=== PATIENT | female | born 1970 | race Hispanic/Latino ===

== ENCOUNTER 2018-11-07 21:40 | Emergency (ER) | payer MEDICARE ==
[2018-11-07] MEDS ORDERED: NACL 0.9% 1000 ML 1,000 ML ONE (22:00)
[2018-11-07] MEDS ORDERED: TORADOL IV ONE (22:02)
[2018-11-07] MEDS ORDERED: TORADOL ONE (22:04)
[2018-11-07 22:08] LABS: Basophils % (Auto) 0.7 % (0.0-1.8); Eosinophils # (Auto) 0.1 K/mm3 (0.0-0.4); Eosinophils % (Auto) 2.4 % (0.0-4.3); Hematocrit 33.6 % (30.3-42.9); Hemoglobin 11.4 gm/dl (10.1-14.3); Lymphocytes # (Auto) 2.6 K/mm3 (1.2-5.4); Lymphocytes % (Auto) 43.9 % (13.4-35.0); Mean Corpuscular HGB Conc 34 % (30-34); Mean Corpuscular Volume 95 fl (79-97); Monocytes # (Auto) 0.6 K/mm3 (0.0-0.8); Monocytes % (Auto) 9.5 % (0.0-7.3); Platelet Count 191 K/mm3 (140-440); Red Blood Count 3.54 M/mm3 (3.65-5.03); Red Cell Distribution Width 16.5 % (13.2-15.2)
--- NOTE | 2018-11-07 22:13 | Emergency Department Report ---
ED Chest Pain HPI - General Chief Complaint: Chest Pain Stated Complaint: SOB/DIZZINESS/CP Time Seen by Provider: 11/07/18 21:56 Source: patient, EMS Mode of arrival: Stretcher Limitations: No Limitations - History of Present Illness Initial Comments: Mrs. Mccoy is a 48 yo female with hx of cervical cancer s/p cryotherapy 20 years ago, chronic pain, drug overdose who presents with 9 days of heavy vaginal bleeding, chest pain, abdominal pain and syncope. For the past 9 days changing pads every 30 minutes for heavy vaginal bleeding. Today developed dull chest pain radiating to shoulder which has been presents for the entire day at rest. Has lower abdominal pain radiating to pelvis.3 Home medications include Xanax and Synthroid. MD Complaint: chest pain -: Gradual, days(s) (1) Onset: during rest Severity scale (0 -10): 6 Quality: heaviness, dull Consistency: constant Improves With: nothing Worsens With: nothing - Related Data Home Medications Medication Instructions Recorded Confirmed Last Taken Hydromorphone HCl [Dilaudid] 4 mg PO BID 07/20/14 07/26/14 07/20/14 Oxycodone HCl [Roxicodone] 30 mg PO BID 07/20/14 07/26/14 07/20/14 Previous Rx's Medication Instructions Recorded Last Taken Type ALPRAZolam [Xanax TAB] 0.5 mg PO Q8H PRN #15 tablet 06/20/13 07/20/14 Rx Levothyroxine [Synthroid] 100 mcg PO DAILY@0600 #30 tablet 06/20/13 Unknown Rx ALBUTEROL Inhaler (OR & NICU) 2 puff IH QID PRN #1 inhalation 06/02/15 Unknown Rx [ProAir HFA Inhaler] Azithromycin [Zithromax Z-MONIQUE] 250 mg PO DAILY #6 tab 06/02/15 Unknown Rx Benzonatate [Tessalon Perles] 100 mg PO Q8HR #20 capsule 06/02/15 Unknown Rx ALPRAZolam [Xanax TAB] 1 mg PO BID PRN #10 tab 11/08/18 Unknown Rx Ibuprofen [Motrin 800 MG tab] 800 mg PO Q8HR PRN #10 tablet 11/08/18 Unknown Rx Levothyroxine [Synthroid] 175 mcg PO QAM 30 Days #30 tablet 11/08/18 Unknown Rx Allergies Allergy/AdvReac Type Severity Reaction Status Date / Time morphine Allergy Shortness Verified 07/20/14 23:00 of Breath Penicillins Allergy Shortness Verified 07/20/14 23:00 of Breath Heart Score - HEART Score History: Slightly suspicious EKG: Normal Age: 45-65 Risk factors: 1-2 risk factors Troponin: < normal limit HEART Score: 2 ED Review of Systems ROS: Stated complaint: SOB/DIZZINESS/CP Other details as noted in HPI Comment: All other systems reviewed and negative Constitutional: malaise. denies: fever Cardiovascular: chest pain Gastrointestinal: abdominal pain Genitourinary: abnormal menses ED Past Medical Hx - Past Medical History Previous Medical History?: Yes Hx Hypertension: No Hx Congestive Heart Failure: No Hx Diabetes: No Hx of Cancer: Yes (cervical) Hx Psychiatric Treatment: Yes (anxiety) Hx Asthma: No Hx COPD: No Additional medical history: Chronic pain, overdose, pnemonia, hypothyroidism - Surgical History Additional Surgical History: x2 - Family History Family history: CAD/IA, vascular disease - Social History Smoking Status: Current Every Day Smoker Substance Use Type: None - Medications Home Medications: Home Medications Medication Instructions Recorded Confirmed Last Taken Type ALPRAZolam [Xanax TAB] 0.5 mg PO Q8H PRN #15 tablet 06/20/13 07/26/14 07/20/14 Rx Levothyroxine [Synthroid] 100 mcg PO DAILY@0600 #30 tablet 06/20/13 07/26/14 Unknown Rx Hydromorphone HCl [Dilaudid] 4 mg PO BID 07/20/14 07/26/14 07/20/14 History Oxycodone HCl [Roxicodone] 30 mg PO BID 07/20/14 07/26/14 07/20/14 History ALBUTEROL Inhaler (OR & NICU) 2 puff IH QID PRN #1 inhalation 06/02/15 Unknown Rx [ProAir HFA Inhaler] Azithromycin [Zithromax Z-MONIQUE] 250 mg PO DAILY #6 tab 06/02/15 Unknown Rx Benzonatate [Tessalon Perles] 100 mg PO Q8HR #20 capsule 06/02/15 Unknown Rx ALPRAZolam [Xanax TAB] 1 mg PO BID PRN #10 tab 11/08/18 Unknown Rx Ibuprofen [Motrin 800 MG tab] 800 mg PO Q8HR PRN #10 tablet 11/08/18 Unknown Rx Levothyroxine [Synthroid] 175 mcg PO QAM 30 Days #30 tablet 11/08/18 Unknown Rx ED Physical Exam - General Limitations: No Limitations General appearance: alert, in no apparent distress, other (anxious) - Head Head exam: Present: atraumatic, normocephalic - Eye Eye exam: Present: normal appearance - ENT ENT exam: Present: mucous membranes moist - Neck Neck exam: Present: normal inspection, full ROM - Respiratory Respiratory exam: Present: normal lung sounds bilaterally. Absent: respiratory distress, wheezes, rales, rhonchi - Cardiovascular Cardiovascular Exam: Present: regular rate, normal rhythm, normal heart sounds. Absent: systolic murmur, diastolic murmur, rubs, gallop - GI/Abdominal GI/Abdominal exam: Present: soft, normal bowel sounds. Absent: distended, tenderness, guarding, rebound - Extremities Exam Extremities exam: Present: normal inspection - Neurological Exam Neurological exam: Present: alert, oriented X3 - Psychiatric Psychiatric exam: Present: normal affect, normal mood - Skin Skin exam: Present: warm, dry, intact, normal color. Absent: rash ED Course Vital Signs 11/07/18 11/07/18 11/07/18 21:43 21:50 22:00 Temperature 98.2 F Pulse Rate 64 59 L 63 Respiratory 16 14 Rate Blood Pressure 98/64 90/58 Blood Pressure [Left] O2 Sat by Pulse 98 98 100 Oximetry 11/07/18 11/07/18 11/07/18 22:06 22:08 22:16 Temperature 98 F Pulse Rate 54 L Respiratory 16 16 13 Rate Blood Pressure 90/58 Blood Pressure 90/54 [Left] O2 Sat by Pulse 97 97 99 Oximetry 11/07/18 11/07/18 11/07/18 22:30 22:43 22:54 Temperature Pulse Rate 57 L 52 L Respiratory 19 16 Rate Blood Pressure 100/54 98/15 Blood Pressure 100/54 [Left] O2 Sat by Pulse 98 98 100 Oximetry 11/07/18 11/07/18 11/07/18 23:00 23:16 23:20 Temperature 97.4 F L Pulse Rate 56 L 67 60 Respiratory 14 19 12 Rate Blood Pressure 101/41 101/61 Blood Pressure 94/53 [Left] O2 Sat by Pulse 99 98 100 Oximetry 11/07/18 11/07/18 11/08/18 23:30 23:46 00:15 Temperature Pulse Rate 63 57 L 65 Respiratory 15 17 12 Rate Blood Pressure 94/53 96/46 112/49 Blood Pressure 112/49 [Left] O2 Sat by Pulse 99 100 98 Oximetry 11/08/18 11/08/18 11/08/18 00:30 00:46 02:03 Temperature Pulse Rate 60 Respiratory 14 21 Rate Blood Pressure 97/51 119/62 116/57 Blood Pressure [Left] O2 Sat by Pulse 97 99 Oximetry 11/08/18 11/08/18 11/08/18 02:15 02:30 02:45 Temperature Pulse Rate 64 62 62 Respiratory 16 12 14 Rate Blood Pressure 95/59 97/50 92/53 Blood Pressure [Left] O2 Sat by Pulse 99 97 96 Oximetry 11/08/18 11/08/18 03:12 03:15 Temperature Pulse Rate 61 57 L Respiratory 21 15 Rate Blood Pressure 95/59 94/59 Blood Pressure [Left] O2 Sat by Pulse 98 97 Oximetry ED Medical Decision Making - Lab Data Result diagrams: 11/07/18 21:57 11/07/18 21:57 - EKG Data -: EKG Interpreted by [place] EKG shows normal: sinus rhythm, axis, intervals, QRS complexes, ST-T waves Rate: normal - EKG Data Interpretation: no acute changes, normal EKG 11/07/18 22:13 EKG obtained at 2152 NSR nl rate nl axis nl intervals no ST-T signs of ischemia no ST elevation rate 60 - Radiology Data Radiology results: report reviewed ct a/p, cxr, v/q scan without acute process - Medical Decision Making 1. chest pain, atypical for ACS. No indication of PE or dissection. Normal EKG. Normal troponin. 2. abdominal pain, no evidence of intra-abdominal inflammatory or infectious process, 3. Dysfunctional uterine bleeding: Differential diagnosis includes perimenopausal bleeding, malignancy/neoplasm, uterine fibroid, no evidence of severe significant anemia normal hemoglobin and hematocrit 4. Syncope with mild hypotension initially, no orthostasis after IVF hydration, Ambulatory, standing BP 101/55 5. medication refill, given synthroid prescription Critical Care Time: Yes Critical care time in (mins) excluding proc time.: 40 Critical care attestation.: If time is entered above; I have spent that time in minutes in the direct care of this critically ill patient, excluding procedure time. 40 minutes of critical care time excluding procedures were used in the care of the patient. Patient required multiple assessments and interventions. I reviewed the electronic medical record. ED Disposition Clinical Impression: DUB (dysfunctional uterine bleeding), Chest pain, Abdominal pain, Hypothyroidism, Medication refill Disposition: TO HOME OR SELFCARE Is pt being admited?: No Does the pt Need Aspirin: No Condition: Stable Instructions: Chest Pain (ED), Acute Abdominal Pain (ED), Dysfunctional Uterine Bleeding (ED) Prescriptions: Ibuprofen [Motrin 800 MG tab] 800 mg PO Q8HR PRN #10 tablet PRN Reason: Pain , Severe (7-10) Levothyroxine [Synthroid] 175 mcg PO QAM 30 Days #30 tablet ALPRAZolam [Xanax TAB] 1 mg PO BID PRN #10 tab PRN Reason: Anxiety
[2018-11-07 22:25] LABS: BUN/Creatinine Ratio 16; Blood Urea Nitrogen 14 mg/dL (7-17); Calcium 8.2 mg/dL (8.4-10.2); Hemolysis Index 4
[2018-11-07] MEDS ORDERED: NACL 0.9% 1000 ML 1,000 ML IV ONE (22:54)
--- NOTE | 2018-11-07 23:14 | XRay Report ---
EXAM: XR CHEST 1V AP HISTORY: Chest Pain TECHNIQUE: AP CXR dated 11/07/2018 at 2200 hours. COMPARISON: None available. FINDINGS: The heart size and mediastinum are within normal limits. The lung bartlett and costophrenic angles are clear. There is no acute parenchymal infiltrate, pleural effusion, or pneumothorax seen. The visua lized bony structures are within normal limits. IMPRESSION: 1. No evidence for acute cardiopulmonary disease seen. This document is electronically signed by Anjali Real MD., Nov 07 2018 11:12:14 PM ET
--- NOTE | 2018-11-07 23:22 | Cat Scan Report ---
PROCEDURE: CT ABDOMEN PELVIS WO CON TECHNIQUE: Computerized axial tomography of the abdomen and pelvis was performed without intravenous contrast. This study is performed without intravascular contrast material and its sensitivity for ab dominal and pelvic pathology, including neoplasms, inflammation, abscess, free fluid, thrombosis, art erial dissection and infarction, is reduced compared with a contrast enhanced study. CT DOSE LENGTH PRODUCT: 1710.4 mGycm HISTORY: abdominal pain COMPARISONS: None . FINDINGS: Visualized lower thorax: No significant abnormality. Liver: Normal size and attenuation. Spleen: Normal size and attenuation. Gallbladder and biliary system: Normal. Pancreas: Normal. Adrenals: Normal. Kidneys: No kidney stones. There is no hydronephrosis.. GI tract: There is no bowel obstruction, colitis or enteritis. The appendix is normal. . Lymph nodes and mesentery: Normal. Vasculature: Normal.. Bladder: Normal. Reproductive organs: Uterus and ovaries are unremarkable.. Peritoneum: There is no ascites or free air, abscess or adenopathy.. Musculoskeletal structures: No significant abnormality. Other: None. IMPRESSION: Normal examination of the abdomen and pelvis . This document is electronically signed by Jason Carpio MD., Nov 07 2018 11:19:52 PM ET
[2018-11-08 00:32] LABS: Amphetamine Screen,Urine PRESUMPTIVE NEGATIVE; Cannabinoid Screen,Urine PRESUMPTIVE NEGATIVE; Cocaine Screen,Urine PRESUMPTIVE NEGATIVE; Methadone Screen,Urine PRESUMPTIVE NEGATIVE; Opiate Screen,Urine PRESUMPTIVE NEGATIVE
[2018-11-08 01:09] LABS: Benzodiazepines Screen,Urine PRESUMPTIVE POSITIVE
[2018-11-08] MEDS ORDERED: BENADRYL IV ONE (01:52)
[2018-11-08] MEDS ORDERED: SOLU-Medrol IV ONE (01:53)
--- NOTE | 2018-11-08 02:31 | Nuclear Medicine Report ---
PROCEDURE: NM PULMONARY QUANTITATIVE DIFFERENTIAL PERFUSION AND VENTILATION IMAGING. TECHNIQUE: 5 mCi Tc-99m MAA was injected IV for quantitative differential pulmonary perfusion imagin g in multiple projections. 15 mCi xenon-133 was inhaled for quantitative differential pulmonary venti lation imaging in multiple projections. Injection site: RIGHT antecubital fossa. CPT 56238 REGULATORY GUIDELINES: The patient was released based upon guidelines established in [facility] Regulat ions for Protection Against Radiation, Chapter 1199-07-30-35, Release of Individuals Containing Radio active Drugs or Implants. HISTORY: Chest pain COMPARISONS: None . FINDINGS: Perfusion: No defects . Ventilation: No defects . IMPRESSION: Normal Examination . This document is electronically signed by Jason Carpio MD., Nov 08 2018 02:29:45 AM ET
[2018-11-08] MEDS ORDERED: TORADOL IV ONE (03:53)
[2018-11-08 05:04] VITALS: BP 106/34
== END 2018-11-08 05:05 | disposition home or self-care (01) ==
LOC: ED 21:40
DX: N93.8 Other specified abnormal uterine and vaginal bleeding (principal); E03.9 Hypothyroidism, unspecified; Z76.0 Encounter for issue of repeat prescription; R55 Syncope and collapse; F17.200 Nicotine dependence, unspecified, uncomplicated; Z88.0 Allergy status to penicillin; Z88.5 Allergy status to narcotic agent
CPT/HCPCS: 36415; 71045; 74176; 78582; 80048; 80307; 83880; 84443; 84484; 85025; 85379; 93005; 93010; 96361; 96374; 96375; 96376; 99285; A9540; A9558; G0480; J1200; J1885; J2930; J7030; 80320